=== PATIENT | female | born 1990 | race Caucasian/White ===

== ENCOUNTER → 2017-03-15 | Outpatient (CLI) | payer MEDICAID ==
[2017-03-15 13:32] LABS: HEMOGLOBIN 14.2 g/dL (12.2-16.2); LYMPH # 1.9 K/mm3 (0.7-4.5); LYMPH % 26.1 % (10-50.0)
[2017-03-15 13:55] LABS: BUN 16 mg/dL (7-18); GFR (ESTIMATED) 121 ML/MIN (59-)
== END ==
LOC: CARL-LAB 08:51
PROVIDERS: Nurse Practitioner Family
DX: N91.2 Amenorrhea, unspecified (principal)